=== PATIENT | male | born 1985 | race Two or more races ===

== ENCOUNTER 2025-04-04 22:23 | Emergency (ER) | payer OTHER ==
[~2025-04-04] VITALS: Ht 167.6 cm; Wt 59.0 kg
[2025-04-04] MEDS ORDERED: LANTUS SOL100 UNIT/1 (22:55)
[2025-04-04] MEDS ORDERED: HUMALOG100 UNIT/2 (22:55)
== END 2025-04-05 00:05 | disposition home or self-care (01) ==
LOC: ER 22:23
DX: M60.9 Myositis, unspecified (principal); E11.9 Type 2 diabetes mellitus without complications; Z79.4 Long term (current) use of insulin